=== PATIENT | male | born 1945 | race Two or more races ===

== ENCOUNTER 2017-03-06 06:20 | Day surgery (SDC) | payer BC ==
[~2017-03-06] VITALS: Ht 162.6 cm; Wt 93.0 kg
[~2017-03-06 06:20] MED LIST: ASPIRIN81 M2 PO; BENADRYL25 MG PO; BENTYL10 MG PO; CELECOXIB200 MG PO; CO Q-10100 MG PO; COQ-10100 MG PO; CRESTOR10 MG PO; FERROUS SULFAT325 MG PO; FLOMAX0.4 MG PO; LEVO-T75 MCG PO; LO-DOSE ASPIRIN81 M2 PO; MELATIN3 MG PO; OXYCODONE HCL5 MG PO; RAPAFLO8 MG PO; SENNA PLUS TAB1 EACH PO; TYLENOL ARTHRI650 MG PO; VICODIN 5-3001 EACH PO; XARELTO10 MG PO; ZOLOFT25 MG PO; ZOLPIDEM TART6.25 MG PO
[2017-03-06 06:53] VITALS: BP 128/78
[2017-03-06 10:45] VITALS: BP 133/74
[2017-03-06 11:45] VITALS: BP 134/66
[2017-03-06 14:06] VITALS: BP 116/62
== END 2017-03-06 14:15 | disposition home or self-care (01) ==
LOC: SDC 06:20
DX: N20.0 Calculus of kidney (principal); R31.0 Gross hematuria; N40.1 Benign prostatic hyperplasia with lower urinary tract symptoms; R39.12 Poor urinary stream; E03.9 Hypothyroidism, unspecified; E78.00 Pure hypercholesterolemia, unspecified; I25.10 Atherosclerotic heart disease of native coronary artery without angina pectoris; Z79.82 Long term (current) use of aspirin; Z95.5 Presence of coronary angioplasty implant and graft; Z87.891 Personal history of nicotine dependence
CPT/HCPCS: 74420; C1876; J0690; J1100; J1580; J2405; J3010; J7050